=== PATIENT | female | born 1945 | race Caucasian/White ===

== ENCOUNTER 2022-11-18 16:55 | Emergency (ER) | payer MEDICARE ==
[~2022-11-18] VITALS: Ht 154.9 cm; Wt 47.6 kg
[2022-11-18 17:02] VITALS: BP_SYST 171
[2022-11-18] MEDS ORDERED: LIP20 PO (17:48)
[2022-11-18] MEDS ORDERED: LOSA50TA3 PO (17:48)
[2022-11-18] MEDS ORDERED: MEMA5TAB PO (17:48)
[2022-11-18] MEDS ORDERED: AMLO5TAB4 PO (17:48)
[2022-11-18] MEDS ORDERED: iohexoL 350 mgI/mL, 100 ML INFUS..BTL IV ONE (17:55)
[2022-11-18 18:14] LABS: BASOPHILS % (AUTO) 0.3 % (0.0-2.0); EOSINOPHILS # (AUTO) 0.1 K/uL (0.0-0.4); EOSINOPHILS % (AUTO) 1.2 % (0.0-4.0); HEMATOCRIT 43.3 % (36-48); HEMOGLOBIN 14.1 g/dL (12.0-16.0); LYMPHOCYTES # (AUTO) 2.3 K/uL (1.0-5.5); LYMPHOCYTES % (AUTO) 49.4 % (20.5-51.5); MEAN CORPUSCULAR HEMOGLOBIN 34 pg (27-31); MEAN CORPUSCULAR HGB CONC 33 % (32-36); MEAN CORPUSCULAR VOLUME 103 fL (79.0-98.0); MONOCYTES # (AUTO) 0.3 K/uL (0.0-1.0); MONOCYTES % (AUTO) 6.6 % (1.7-9.3); NEUTROPHILS % (AUTO) 42.5 % (40.0-70.0); PLATELET COUNT (AUTO) 218 K/uL (130-430); RED CELL DISTRIBUTION WIDTH 12.5 % (9.0-15.0); WHITE BLOOD COUNT (AUTO) 4.7 K/uL (4.8-10.8)
[2022-11-18 18:22] LABS: INR 1.1 (0.8-1.2); PROTHROMBIN TIME 10.7 SECS (9.5-12.5)
[2022-11-18 18:23] LABS: ANION GAP 6 (5-15); CALCIUM 9.8 mg/dL (8.4-11.0); CHLORIDE 111 mmol/L (98-107); CREATININE 0.89 mg/dL (0.55-1.30); GLUCOSE 86 mg/dL (70-99); UREA NITROGEN, BLOOD 18 mg/dL (8-21)
[2022-11-18 18:31] LABS: ALANINE AMINOTRANSFERASE 27 U/L (12-78); ALBUMIN 3.2 g/dL (3.4-4.8); ASPARTATE AMINOTRANSFERASE 29 U/L (10-37); TOTAL BILIRUBIN 0.8 mg/dL (0.0-1.0)
[2022-11-18] MEDS ORDERED: NACL 0.9% 1,000 ML IV ONE (19:00)
[2022-11-18] MEDS ORDERED: ASPIRIN 81 MG TAB.CHEW PO ONE (22:00)
[2022-11-18 23:03] VITALS: BP_SYST 162
== END 2022-11-18 23:03 | disposition short-term general hospital (02) ==
LOC: EDBD 16:55 → SED 16:55
DX: I63.9 Cerebral infarction, unspecified (principal); I10 Essential (primary) hypertension; R53.1 Weakness; Z88.0 Allergy status to penicillin; Z79.899 Other long term (current) drug therapy; Z20.822 Contact with and (suspected) exposure to COVID-19
CPT/HCPCS: 99285; 70496; 96360; 71045; 87426; 80053; 83880; 85025; 85610; 84484; 36415; 93005; 70498; 70450; 76376; Q9967; J7030